=== PATIENT | male | born 1950 | race Caucasian/White ===

== ENCOUNTER 2018-12-26 10:03 | Observation (INO) | payer MEDICARE, BC ==
[~2018-12-26] VITALS: Ht 172.7 cm; Wt 90.6 kg
[2018-12-26] VITALS (10 sets, daily range): BP systolic 94–131; BP diastolic 52–81
[2018-12-26] MEDS ORDERED: aspirin 81mg tab.chew PO ONE (10:15)
[2018-12-26 10:35] LABS: BASOPHILS # (AUTO) 0.1 X10'3 (0-0.2); EOSINOPHILS # (AUTO) 0.1 X10'3 (0-0.9); HEMATOCRIT 47.9 % (42.0-52.0); HEMOGLOBIN 16.4 g/dl (14.0-17.9); LYMPHOCYTES # (AUTO) 1.8 X10'3 (1.1-4.8); LYMPHOCYTES % (AUTO) 27.9 % (21-51); MEAN CORPUSCULAR HEMOGLOBIN 30.7 PG (27.0-31.0); MEAN CORPUSCULAR HGB CONC 34.3 g/dL (33.0-36.5); MEAN CORPUSCULAR VOLUME 89.5 FL (78-98); MEAN PLATELET VOLUME 8.1 FL (7.4-10.4); MONOCYTES # (AUTO) 0.4 X10'3 (0-0.9); MONOCYTES % (AUTO) 5.7 % (2-12); NEUTROPHILS # (AUTO) 4.2 X10'3 (1.8-7.7); NEUTROPHILS % (AUTO) 63.4 % (42-75); PLATELET COUNT 134 X10'3 (140-440); RED BLOOD COUNT 5.35 X10'6 (4.70-6.10); RED CELL DISTRIBUTION WIDTH 13.3 % (11.5-14.5); WHITE BLOOD COUNT 6.6 X10'3 (4.5-11.0)
[2018-12-26 10:40] LABS: ALANINE AMINOTRANSFERASE 34 U/L (12-78); ALBUMIN 3.9 G/DL (3.4-5.0); ALBUMIN/GLOBULIN RATIO 1.1 (1.1-1.5); ALKALINE PHOSPHATASE 82 IU/L (46-116); ANION GAP 6 (8-16); ASPARTATE AMINO TRANSFERASE 19 U/L (10-37); BILIRUBIN,TOTAL 0.5 MG/DL (0.1-1.0); BLOOD UREA NITROGEN 20 MG/DL (7-18); BUN/CREATININE RATIO 18.7 (5.4-32.0); CHLORIDE 105 MMOL/L (99-107); CREATININE 1.07 MG/DL (0.60-1.10); GLUCOSE 102 MG/DL (70-104); MAGNESIUM 1.7 MG/DL (1.5-2.4); SODIUM 140 MMOL/L (135-145); TOTAL CARBON DIOXIDE 29.1 MMOL/L (24-32); TOTAL PROTEIN 7.6 G/DL (6.4-8.2); eGFR 68 ML/MIN
--- NOTE | 2018-12-26 10:54 | NUR ---
SILVANA FAXED TO DR. SMALL
[2018-12-26] MEDS ORDERED: atorvastatin 20mg tablet PO SCH ×2 (10:55→11:45)
[2018-12-26] MEDS ORDERED: atorvastatin 20mg tablet PO ONE (10:55)
[2018-12-26] MEDS ORDERED: nitroGLYCERIN 0.4mg SUBLingual tab SL PRN ×3 (11:00→11:55)
[2018-12-26] MEDS ORDERED: heparin 25,000 UNIT/250ml bag 250 ML IV SCH (11:01)
[2018-12-26] MEDS ORDERED: heparin 10,000 units/1 ML INJ IV ONE (11:05)
[2018-12-26] MEDS ORDERED: normal saline 1000ml 1,000 ML IV SCH (11:42)
[2018-12-26] MEDS ORDERED: magnesium 4gm in 100ml NS 100 ML IV PRN (11:45)
[2018-12-26] MEDS ORDERED: acetaminophen 650mg rectal suppository RC PRN (11:45)
[2018-12-26] MEDS ORDERED: potassium CL 10mEq/100ml bag 100 ML IV PRN ×2 (11:45)
[2018-12-26] MEDS ORDERED: ondansetron/PF 4mg/2ml inj IV PRN (11:45)
[2018-12-26] MEDS ORDERED: magnesium hydroxide 30ml (MOM) UD suspension PO PRN (11:45)
[2018-12-26] MEDS ORDERED: HYDROcodone/acetaminophen 5mg/325mg tablet PO PRN (11:45)
[2018-12-26] MEDS ORDERED: metoclopramide 5 mg/ml inj IV PRN (11:45)
[2018-12-26] MEDS ORDERED: bisacodyl 10mg suppository rectal RC PRN (11:45)
[2018-12-26] MEDS ORDERED: potassium Cl 20 mEq SR tablet PO PRN ×2 (11:45)
[2018-12-26] MEDS ORDERED: magnesium Cl slow-release 64mg tablet PO PRN (11:45)
[2018-12-26] MEDS: K and/or MAG REPLACEMENT MC SCH (11:45)
[2018-12-26] MEDS ORDERED: diphenhydrAMINE 50 mg/ml inj IV PRN (11:45)
[2018-12-26] MEDS ORDERED: HYDROcodone/acetaminophen 10/325mg tab PO PRN (11:45)
[2018-12-26] MEDS ORDERED: magnesium 2GM in 50ml NS 50 ML IV PRN (11:45)
[2018-12-26] MEDS ORDERED: morphine 2 MG/ML inj. syringe IV PRN ×2 (11:45)
[2018-12-26] MEDS ORDERED: diphenhydrAMINE 25mg capsule PO PRN (11:45)
[2018-12-26] MEDS ORDERED: mag hydrox/Alum hydrox/simeth 30ml oral suspension PO PRN (11:45)
[2018-12-26] MEDS ORDERED: acetaminophen 325mg tablet PO PRN ×2 (11:45)
[2018-12-26] MEDS ORDERED: aminophylline 250mg/10ml inj. IV PRN (11:55)
[2018-12-26] MEDS ORDERED: regadenoson 0.4mg/5ml syringe IV ONE (11:55)
[2018-12-26] MEDS ORDERED: metoprolol tartrate 1mg/ml inj IV PRN (11:55)
[2018-12-26 11:58] LABS: CLARITY,URINE CLEAR (Clear); COLOR,URINE YELLOW (Yellow); GLUCOSE, URINE NEGATIVE (Neg); KETONES,URINE NEGATIVE (Neg); LEUKOCYTE ESTERASE ,URINE NEGATIVE (Neg); NITRITES, URINE NEGATIVE (Neg); OCCULT BLOOD,URINE TRACE-INTACT (Neg); PROTEIN,URINE 100 mg/dl (Neg); UROBILINOGEN,URINE 0.2 E.U/dL (0.2-1.0)
[2018-12-26 12:00] LABS: UA COLLECTION TYPE CLN CATCH MIDSTREAM
[2018-12-26 12:06] LABS: BACTERIA,URINE NONE SEEN /HPF (Neg); MUCUS STRANDS NONE SEEN /LPF (Neg); RBC,URINE 0-2 /HPF (0-2); SQUAMOUS EPITHELIAL CELL,UR NONE SEEN /LPF (FEW); WBC,URINE 0-4 /HPF (0-4)
[2018-12-26] MEDS ORDERED: diphenhydrAMINE 25mg capsule PO ONE (12:10)
[2018-12-26] MEDS ORDERED: LORA10TA7 PO (12:19)
[2018-12-26] MEDS ORDERED: fentaNYL/PF 50MCG/1 ML 2ML syringe ONE ×2 (12:39→13:18)
[2018-12-26] MEDS ORDERED: LIDOcaine 1% (10mg/ml)w/preservative injection 20ml MDV ONE (12:39)
[2018-12-26] MEDS ORDERED: iohexol 350 MG/ML 50ML vial IV ONE (12:39)
[2018-12-26] MEDS ORDERED: iohexol 350MG/ML 100ml bottle IV ONE (12:39)
[2018-12-26] MEDS ORDERED: midazolam 2 mg/2 ml injection ONE ×2 (12:39→13:18)
[2018-12-26 12:47] LABS: HEMOGLOBIN A1C 5.8 % (4.5-6.2)
--- NOTE | 2018-12-26 12:50 | NUR ---
Pt arrived to unit in stable condition. 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 Pt off floor with laborer construction or leak gang at [phone].
[2018-12-26] MEDS ORDERED: nitroGLYCERIN-Tridil 50MG/D5W 250 ML IV ONE (13:30)
[2018-12-26] MEDS: normal saline 1000ml 1,000 ML IV SCH ×2 (14:00→19:05)
--- NOTE | 2018-12-26 14:00 | NUR ---
Received report on patient from laborer steel handling
--- NOTE | 2018-12-26 14:15 | NUR ---
Patient arrived on unit, vitals obtained, telemetry applied, patient VSS, groin site assessed, no sign of bleeding or hematoma, angioseal CDI, patient reports no pain, will continue to monitor
--- NOTE | 2018-12-26 18:21 | NUR ---
Problems reprioritized. Patient report given, questions answered & plan of care reviewed with SASHA Cook. patient currently resting in bed, bed locked and low, call light in reach, at bedside, no acute distress, groin site assessed and angioseal CDI, no evidence of hematoma, stable at [facility] change.
--- NOTE | 2018-12-26 18:29 | NUR ---
Patient in room PCU 3012. I have received report from Tejal BAEZ and had the opportunity to ask questions and assume patient care.
[2018-12-26] MEDS: carVEDilol 3.125mg tablet PO SCH (19:55)
--- NOTE | 2018-12-26 19:56 | NUR ---
2000 dose of 3.125mg Coreg not administered due to decreased HR of 54. BP 116/60. SASHA Cook and SASHA Koehler notified.
[2018-12-26] MEDS ORDERED: heparin, porcine 5000 units/ml vial SQ SCH (20:00)
[2018-12-26] MEDS ORDERED: temazepam 15mg capsule PO PRN (21:00)
[2018-12-27 02:30] VITALS: BP 117/71
[2018-12-27 05:42] LABS: BASOPHILS % (AUTO) 0.5 % (0-1); EOSINOPHILS # (AUTO) 0.1 X10'3 (0-0.9); EOSINOPHILS % (AUTO) 1.3 % (0-6); HEMATOCRIT 42.7 % (42.0-52.0); HEMOGLOBIN 14.6 g/dl (14.0-17.9); LYMPHOCYTES # (AUTO) 1.5 X10'3 (1.1-4.8); MEAN CORPUSCULAR HEMOGLOBIN 30.9 PG (27.0-31.0); MEAN CORPUSCULAR HGB CONC 34.3 g/dL (33.0-36.5); MEAN CORPUSCULAR VOLUME 90.2 FL (78-98); MEAN PLATELET VOLUME 8.1 FL (7.4-10.4); MONOCYTES # (AUTO) 0.4 X10'3 (0-0.9); MONOCYTES % (AUTO) 6.1 % (2-12); NEUTROPHILS # (AUTO) 4.6 X10'3 (1.8-7.7); NEUTROPHILS % (AUTO) 70.1 % (42-75); PLATELET COUNT 115 X10'3 (140-440); RED BLOOD COUNT 4.73 X10'6 (4.70-6.10); RED CELL DISTRIBUTION WIDTH 13.5 % (11.5-14.5); WHITE BLOOD COUNT 6.6 X10'3 (4.5-11.0)
[2018-12-27 06:00] VITALS: BP 132/78
--- NOTE | 2018-12-27 06:07 | NUR ---
Problems reprioritized. Patient report given, questions answered & plan of care reviewed with Tejal BAEZ.
[2018-12-27 06:18] LABS: ALANINE AMINOTRANSFERASE 28 U/L (12-78); ALBUMIN 3.3 G/DL (3.4-5.0); ALBUMIN/GLOBULIN RATIO 1.1 (1.1-1.5); ALKALINE PHOSPHATASE 61 IU/L (46-116); ANION GAP 6 (8-16); ASPARTATE AMINO TRANSFERASE 18 U/L (10-37); BILIRUBIN,TOTAL 0.6 MG/DL (0.1-1.0); BLOOD UREA NITROGEN 15 MG/DL (7-18); BUN/CREATININE RATIO 14.6 (5.4-32.0); CALCIUM 8.3 MG/DL (8.5-10.1); CHLORIDE 107 MMOL/L (99-107); CHOL/HDL RATIO 5.2 (0.00-4.99); CHOLESTEROL 156 MG/DL (0-200); CREATININE 1.03 MG/DL (0.60-1.10); GLUCOSE 119 MG/DL (70-104); HDL CHOLESTEROL 30 MG/DL (35-60); LDL CHOLESTEROL 71 MG/DL (50-100); MAGNESIUM 1.6 MG/DL (1.5-2.4); PHOSPHORUS 3.3 MG/DL (2.3-4.5); POTASSIUM 4.1 MMOL/L (3.5-5.1); SODIUM 140 MMOL/L (135-145); TOTAL CARBON DIOXIDE 26.8 MMOL/L (24-32); TOTAL PROTEIN 6.3 G/DL (6.4-8.2); TRIGLYCERIDES 327 MG/DL (20-135); eGFR 71 ML/MIN
--- NOTE | 2018-12-27 06:26 | NUR ---
Patient in room PCU 3012. I have received report from SASHA Cook and had the opportunity to ask questions and assume patient care. Patient is currently resting in bed, bed locked and low, call light in reach, denies needs, no acute distress, will continue to monitor.
[2018-12-27] MEDS: carVEDilol 3.125mg tablet PO SCH (07:34)
[2018-12-27] MEDS: K and/or MAG REPLACEMENT MC SCH (07:35)
[2018-12-27] MEDS ORDERED: regadenoson 0.4mg/5ml syringe IV ONE (08:00)
[2018-12-27] MEDS ORDERED: lisinopril 5mg tablet PO SCH (08:00)
[2018-12-27] MEDS ORDERED: atorvastatin 20mg tablet PO SCH (08:00)
[2018-12-27] MEDS ORDERED: aspirin 81mg tablet.DR PO SCH (08:00)
[2018-12-27] MEDS ORDERED: ASPI-1071 PO (09:11)
[2018-12-27] MEDS ORDERED: COR3.125T PO (09:11)
[2018-12-27] MEDS ORDERED: LISI-642 PO (09:11)
[2018-12-27] MEDS ORDERED: ATOR20TA66 PO (09:11)
[2018-12-27] MEDS ORDERED: NITR0.4T51 SL (09:11)
--- NOTE | 2018-12-27 09:34 | NUR ---
PAGER ID: [phone] MESSAGE: SASHA Toure, ext [phone], [id number], Yumiko, pt is consistently adair without coreg, do you still want to send him home with it? I held it this morning for HR 48-55 when at rest
--- NOTE | 2018-12-27 11:32 | NUR ---
Received orders for pateint discharge, patient belongings gathered, patient educated on angina and on new medications, patient verbalized understanding of teaching. IVs removed, catheter tips intact, hemostasis achieved. angioseal groin site dressing CDI, no hematoma. telemetry removed. Patient stable at time of discharge, left ambulatory with in accompaniment.
[2018-12-27] MEDS ORDERED: FENO145T25 PO (22:50)
== END 2018-12-27 11:28 | disposition home or self-care (01) ==
LOC: ER 10:03 → ED HOLD 11:42 → EDBEDREQ 12:14 → PCU 3S 12:50
PROVIDERS: ADMIT Family Medicine; ATTEND Family Medicine
DX: I20.0 Unstable angina (principal); K21.9 Gastro-esophageal reflux disease without esophagitis; Z87.891 Personal history of nicotine dependence; Z90.49 Acquired absence of other specified parts of digestive tract; Z98.1 Arthrodesis status; Z79.82 Long term (current) use of aspirin; Z79.899 Other long term (current) drug therapy
CPT/HCPCS: 36415; 71045; 80053; 80061; 81001; 83036; 83735; 84100; 84484; 85025; 85347; 85610; 85730; 87081; 93005; 93306; 93458; 96365; 96366; 96376; 99284; C1769; G0378; J1644; J2001; J2250; J3010; J7030; Q0163; Q9967; 99152; 99153; A4620; A6258; C1760; J3490